=== PATIENT | male | born 1985 | race Hispanic/Latino ===

== ENCOUNTER 2017-03-16 06:22 | Day surgery (SDC) | payer OTHER ==
[2017-03-16 07:22] VITALS: BMI 21.4
[2017-03-16] MEDS ORDERED: Propofol 10 mg/ml Inj (20 ML) ONE ×2 (09:55→10:05)
--- NOTE | 2017-03-16 09:55 | CP.SDSHP ---
Same Day Surgery H & P - History Proposed Procedure: colonoscopy Pre-Op Diagnosis: rectal bleeding - Previous Medical/Surgical History Comments: depression - Allergies Allergies: Allergies No Known Allergies Allergy (Verified 03/16/17 07:19) - Physical Exam General Appearance: NAD Vital Signs: Vital Signs 03/16/17 07:22 Temperature 98.6 F Pulse Rate 71 Respiratory 19 Rate Blood Pressure 146/70 O2 Sat by Pulse 98 Oximetry Mental Status: Alert & Oriented x3 Neuro: WNL Heart: WNL Lungs: WNL GI: WNL - {Optional Preform as Required} Abdomen: WNL - Impression Pt. Evaluated Today:Candidate for Anesthesia & Procedure: Yes - Date & Time Date: 03/16/17 Time: 09:55 Short Stay Discharge - Short Stay Discharge Admitting Diagnosis/Reason for Visit: RECTAL BLEEDING Disposition: HOME/ ROUTINE
[2017-03-16] MEDS ORDERED: Lidocaine 2% Jelly (5 ml) TOP ONE (10:28)
[2017-03-16 10:47] VITALS: TEMP 97.8
[2017-03-16 12:27] VITALS: BP 105/53; PULSE 66; RESP 12; O2SAT 100
== END 2017-03-16 12:15 | disposition home or self-care (01) ==
LOC: C.ENDO 06:22
PROVIDERS: ATTEND Internal Medicine Gastroenterology
DX: D12.0 Benign neoplasm of cecum (principal); K64.8 Other hemorrhoids; A63.0 Anogenital (venereal) warts
CPT/HCPCS: 45388; 88305; J2704